=== PATIENT | female | born 1960 ===

== ENCOUNTER 2018-04-12 23:58 | Emergency (ER) | payer OTHER ==
[2018-04-13 00:09] VITALS: PULSE 86; O2SAT 99
--- NOTE | 2018-04-13 01:06 | C.PDOC ---
History Of Present Illness 58 y/o female presents to ED for complaints of right hip and thigh pain that began today after she fell at work and landed on her right hip. Denies LOC, head injury or any other physical complaints. - HPI Time Seen by Provider: 04/13/18 00:12 Chief Complaint (Nursing): Trauma History Per: Patient History/Exam Limitations: no limitations Onset/Duration Of Symptoms: Hrs Injury Occurred (Timing): Hours Ago: Location Of Injury: Right: Hip, Thigh Severity: Moderate Pain Scale Rating Of: 4 Recent travel outside of the [place]: No Past Medical History Reviewed: Historical Data, Nursing Documentation, Vital Signs Vital Signs: Last Vital Signs Temp 98.2 F 04/13/18 01:09 Pulse 86 04/13/18 01:09 Resp 18 04/13/18 01:09 BP 124/70 04/13/18 01:09 Pulse Ox 99 04/13/18 01:09 - Medical History PMH: No Chronic Diseases Surgical History: Cholecystectomy Family History: States: No Known Family Hx - Social History Hx Alcohol Use: Yes Hx Substance Use: No - Immunization History Hx Tetanus Toxoid Vaccination: No Hx Influenza Vaccination: Yes Hx Pneumococcal Vaccination: No Review Of Systems Constitutional: Negative for: Fever, Chills Gastrointestinal: Negative for: Nausea, Vomiting, Abdominal Pain, Diarrhea Musculoskeletal: Positive for: Other (Right hip and thigh pain) Skin: Negative for: Rash Neurological: Negative for: Weakness, Numbness Physical Exam - Physical Exam Appears: Well, Non-toxic, No Acute Distress Skin: Normal Color, Warm, Dry, No Ecchymosis, No Other (Hematoma ) Head: Atraumatic, Normacephalic Eye(s): bilateral: Normal Inspection, PERRL, EOMI Oral Mucosa: Moist Neck: Normal ROM, Supple Chest: Symmetrical, No Tenderness Cardiovascular: Rhythm Regular Respiratory: No Decreased Breath Sounds, No Rales, No Rhonchi, No Wheezing Gastrointestinal/Abdominal: Soft, No Tenderness Back: No CVA Tenderness Extremity: Normal ROM (With reproducible pain of right hip ), Tenderness (To right hip and right upper thigh posterior aspect ), No Deformity, No Swelling Extremity: Bilateral: Normal Color And Temperature, Normal ROM Pulses: Left Dorsalis Pedis: Normal, Right Dorsalis Pedis: Normal Neurological/Psych: Oriented x3, Normal Speech (Speaking in full sentences ), Normal Motor, Normal Sensation, Normal Reflexes Gait: Steady ED Course And Treatment O2 Sat by Pulse Oximetry: 99 (RA) Pulse Ox Interpretation: Normal - Other Rad Hip X-Ray X-Ray: Interpreted by Me, Viewed By Me Interpretation: - No fracture. - No acute findings Progress Note: Administered Toradol. Ordered Hip X-Ray. Upon provider reevaluation patient is feeling better, is medically stable, and requires no further treatment in the ED at this time. Counseling was provided and all questions were answered regarding diagnosis and need for follow up. There is agreement to discharge plan. Return if symptoms persist or worsen. Disposition Counseled Patient/Family Regarding: Diagnosis, Need For Followup - Disposition Referrals: Benjamin Goodman DO [Staff Provider] - Disposition: HOME/ ROUTINE Disposition Time: 01:04 Condition: STABLE Additional Instructions: Please follow up with PMD Take motrin for pain Apply ICE toa bernabe Return to ER if worse Prescriptions: Ibuprofen [Motrin] 600 mg PO Q6H #20 tab Instructions: Hip Pointer (DC) Forms: [employer] ([place]), Work Excuse - Clinical Impression Clinical Impression: Contusion of right hip - PA / PUBLISHING SPECIALIST / Resident Statement MD/DO has reviewed & agrees with the documentation as recorded. - Scribe Statement The provider has reviewed the documentation as recorded by the Vivi Honeycutt All medical record entries made by the Ronaldibselena were at my direction and personally dictated by me. I have reviewed the chart and agree that the record accurately reflects my personal performance of the history, physical exam, medical decision making, and the department course for this patient. I have also personally directed, reviewed, and agree with the discharge instructions and disposition.
[2018-04-13 01:16] VITALS: BP 124/70; RESP 18; TEMP 98.2
--- NOTE | 2018-04-13 08:26 | RAD ---
Date of service: 04/13/2018 PROCEDURE: HISTORY: pain, fall COMPARISON: None TECHNIQUE: AP view of the pelvis and applicable frog leg views obtained. FINDINGS: Superolateral hip joint space narrowing (bilateral) small subchondral acetabular and femoral subarticular cystic changes - right hip greater than left. Acetabular spurring superolateral and inferomedial right greater than left. No fracture L4-5 and L5-S1 hypertrophic facet arthrosis. Mild SI joint sclerotic arthrosis IMPRESSION: No fracture or dislocation. Multifocal arthrosis. Hip arthrosis more pronounced on the right side
== END 2018-04-13 01:10 | disposition home or self-care (01) ==
LOC: C.ER 23:58
DX: S70.01XA Contusion of right hip, initial encounter (principal); W19.XXXA Unspecified fall, initial encounter; Y92.89 Other specified places as the place of occurrence of the external cause; Y99.0 Civilian activity done for income or pay
CPT/HCPCS: 73502; 96372; 99284; J1885

== ENCOUNTER 2019-01-10 09:43 | Outpatient (CLI) | payer OTHER | END 2019-01-10 09:44 | disposition home or self-care (01) | LOC: C.RADH 09:44 ==